=== PATIENT | female | born 1990 | race Caucasian/White ===

== ENCOUNTER → 2017-08-26 19:11 | Outpatient (CLI) | payer OTHER, SELFPAY ==
[2017-08-26 21:57] LABS: Chlamydia Trachomatis by PCR Negative (Negative); Neisserai gonorrhoeae by PCR Negative (Negative); Probe Check PASS; Sample Adequacy Control PASS; Specimen Processing Control PASS
[2017-08-28 14:45] LABS: HPV Reflexed? NOT INDICATED
== END ==
PROVIDERS: Family Provider Obstetrics & Gynecology; PCP Obstetrics & Gynecology; Visit Provider Obstetrics & Gynecology
DX: Z12.4 Encounter for screening for malignant neoplasm of cervix (principal); Z11.3 Encounter for screening for infections with a predominantly sexual mode of transmission
CPT/HCPCS: 87491; 87591; 88175; G0145

== ENCOUNTER → 2017-09-22 15:23 | Outpatient (CLI) | payer OTHER, SELFPAY ==
[2017-09-22 17:35] LABS: Color, Urine Yellow (Yellow); Glucose, Dipstick Normal (Normal); Ketone-Dipstick Negative (Negative); Leukocyte Esterase-Dipstick Negative /ul (Negative); Nitrite-Dipstick Negative (Negative); Occult Blood-Urine Negative /ul (Negative); Protein-Dipstick Negative (Negative); Urine Bilirubin Dipstick Negative (Negative); Urine Clarity Clear (Clear); Urine Urobilinogen Normal (Normal); Urine pH 6.5 (5.0 - 8.0)
[2017-09-22 17:48] LABS: Absolute Lymphocyte Count 2.57 X10^3/ul (0.83-4.51); Absolute Neutrophil Count 5.4 X10^3/uL (2.0-7.7); Basophil# 0.02 X10^3/uL; Basophil% 0.2 % (0-1); Eosinophils% 2.2 % (0-5); Hematocrit 37.4 % (37-47); Hemoglobin 12.5 g/dl (12.0-15.0); Lymphocyte # 2.57 X10^3/ul (4.0); Lymphocyte % 28.8 % (19-41); Mean Corp Hgb Conc 33.4 g/gl (32-36); Mean Corpuscular Hgb 31.6 pg (27.0-32.0); Mean Corpuscular Volume 94.7 fL (81-99); Mean Platelet Vol. 10.4 fl (6.2-12.0); Monocyte# 0.74 X10^3/uL; Monocyte% 8.3 % (0-10); Neutrophil # 5.36 X10^3/uL (2.7-7.7); Neutrophil % 60.1 % (47-70); Platelet Count 295 K/mm3 (150-450); RBC Distribution Width SD 43.5 fl (35.1-43.9); Red Blood Count 3.95 M/mm3 (4.2-5.4); White Blood Count 8.9 K/mm3 (4.4-11.0)
[2017-09-22 17:52] LABS: POSITIVE COUNT NO; POSITIVE DIFFERENTIAL NO; POSITIVE MORPHOLOGY NO
[2017-09-22 17:58] LABS: Thyroid Stim Hormone (TSH) 0.74 uIU/mL (0.358-3.74)
[2017-09-22 17:59] LABS: Amphetamine Urine VISTA NEGATIVE (<1000 ng/mL); Barbiturate Urine VISTA NEGATIVE (< 200 ng/mL); Benzodiazepine Urine VISTA NEGATIVE (< 200 ng/mL); Cocaine Urine VISTA NEGATIVE (< 300 ng/mL); Ecstacy Urine VISTA NEGATIVE (< 500 ng/mL); Methadone Urine VISTA NEGATIVE (< 300 ng/mL); PCP Urine VISTA NEGATIVE (< 25 ng/mL); THC Urine VISTA NEGATIVE (< 50 ng/mL); Vista UDS pH Range 5
[2017-09-22 18:41] LABS: HIV - WCH Non-Reactive (Nonreactive)
[2017-09-24 12:14] LABS: HEPATITIS B SURFACE AG Negative (Negative); Hep C Antibodies <0.1 s/co ratio (0.0-0.9)
[2017-09-26 03:47] LABS: Prenatal RPR NONREACTIVE (NONREACTIVE)
== END ==
PROVIDERS: Visit Provider Obstetrics & Gynecology
DX: Z34.81 Encounter for supervision of other normal pregnancy, first trimester (principal)
CPT/HCPCS: 36415; 80307; 81002; 84443; 85025; 86703; 86762; 86803; 87340

== ENCOUNTER → 2018-01-09 15:12 | Outpatient (CLI) | payer OTHER, SELFPAY ==
[2018-01-09 17:40] LABS: Hematocrit 32.8 % (37-47); Hemoglobin 10.7 g/dl (12.0-15.0); Mean Corp Hgb Conc 32.6 g/gl (32-36); Mean Corpuscular Hgb 31.5 pg (27.0-32.0); Mean Corpuscular Volume 96.5 fL (81-99); Mean Platelet Vol. 10.5 fl (6.2-12.0); Platelet Count 255 K/mm3 (150-450); RBC Distribution Width CV 12.6 % (11.6-14.6); RBC Distribution Width SD 42.5 fl (35.1-43.9); White Blood Count 7.6 K/mm3 (4.4-11.0)
[2018-01-09 17:46] LABS: Glucose Challenge Gest 1H 50g 166 mg/dL (70-140)
[2018-01-09 17:49] LABS: Scan Indicated on CBC? Y/N NO
== END ==
PROVIDERS: Visit Provider Obstetrics & Gynecology
DX: Z34.83 Encounter for supervision of other normal pregnancy, third trimester (principal)
CPT/HCPCS: 36415; 82950; 85027

== ENCOUNTER → 2018-01-22 06:48 | Outpatient (CLI) | payer OTHER, SELFPAY ==
[2018-01-22 07:45] LABS: Glucose GTT-Gestation. Fasting 92 mg/dL (<105)
[2018-01-22 09:12] LABS: Glucose GTT-Gestational 1 Hr 194 mg/dL (<190)
[2018-01-22 10:45] LABS: Glucose GTT-Gestational 2 Hr 165 mg/dL (<165)
[2018-01-22 11:13] LABS: Glucose GTT-Gestational 3 Hr 73 L (<145)
== END ==
PROVIDERS: Family Provider Preventive Medicine Occupational Medicine; PCP Preventive Medicine Occupational Medicine; Referring Provider Obstetrics & Gynecology; Visit Provider Obstetrics & Gynecology
DX: O24.912 Unspecified diabetes mellitus in pregnancy, second trimester (principal); Z3A.00 Weeks of gestation of pregnancy not specified
CPT/HCPCS: 36415; 82951; 82952

== ENCOUNTER → 2018-03-05 21:16 | Outpatient (CLI) | payer OTHER, SELFPAY ==
[2015-05-25 07:26] VITALS: BMI 29.8
--- OUTSIDE RECORDS SUMMARY | 2018-04-30 23:48 | XMS RPT_ITS ---
:1990 Author Organization OHIP Care Team Providers Name Role Phone ADELINA FIERRO Attending Unavailable RUBI PALOMINO Referring Unavailable VERONICA FRIEDMAN Primary Care Unavailable JEFF WHYTE Attending Unavailable RUBI PALOMINO Referring Unavailable VERONICA FRIEDMAN Primary Care Unavailable Rubi Palomino Admitting Unavailable Rubi Palomino Attending Unavailable Rubi Palomino Referring Unavailable Veronica Friedman Primary Care Unavailable Rubi Palomino Attending Unavailable Candelario, Rubi Primary Care Unavailable Rubi Palomino Attending Unavailable Rubi Palomino Attending Unavailable Rubi Palomino Attending Unavailable Rubi Palomino Referring Unavailable Veronica Friedman Primary Care Unavailable Emperatriz Amezcua Attending Unavailable Veronica Friedman Primary Care Unavailable Emperatriz Amezcua Referring Unavailable PROBLEMS PROBLEMS DATE TYPE CONDITION / CODE ATTENDING STATUS SOURCE 03/06/2018 Unknown Z36.85 - Encounter CarlaFishOtilio, Active [place] for Summer Community screening for Hospital Streptococcus B / Repository Z36.85(ICD-10) 01/09/2018 Unknown Z34.83 - Encounter Rubi Palomino Active [place] for supervision of Community other normal Hospital , third Repository trimester / Z34.83(ICD-10) 09/22/2017 Unknown Z34.81 - Encounter Rubi Palomino Active [place] for supervision of Community other normal Hospital , first Repository trimester / Z34.81(ICD-10) 08/27/2017 Unknown Z12.4 - Encounter Rubi Palomino Active [place] for screening for Community malignant neoplasm Hospital of cervix / Repository Z12.4(ICD-10) 08/27/2017 Unknown Z11.3 - Encounter Rubi Palomino Active [place] for screening for Community infections with a Hospital predominantly Repository sexual mode of transmission / Z11.3(ICD-10) PROCEDURES PROCEDURES No Procedure Records FoundRESULTS RESULTS DISCHARGE INSTRUCTION Observed: 03/20/2018 Status: F Source: [place] 12:54 PM [facility] HOSPITAL REPOSITORY [facility] Medical Records Department [address] [place] [address] Instructions for Home/Discharge Instructions 03/20/18 1252 MR#: [id number] Acct: [id number] Name: HERNANDEZ VASQUEZ Rep #: [id number] : 1990 27 From: Rubi Palomino MD PCP: Veronica Friedman DO Status: ADM IN Discharge Diet: No Restrictions Discharge Activity: May Shower, May Take a Tub Bath May resume sexual activity in: 4-6 weeks Additional Activity Instructions:: Nothing in the vagina for 4-6 weeks. You may return to work/school in 6 weeks. Additional Instructions: If you experience any of the following, contact your healthcare provider. * Bleeding that soaks a pad every hour for 2 hours * Fever 100.4 or higher * Unrelieved abdominal pain * Problems urinating (including inability to urinate or burning while urinating). * Visual changes * Severe headache * Flu-like symptoms * Pain or redness in one of both of your breasts * Pain, warmth, tenderness or swelling in your legs, especially the calf area * Frequent nausea and vomiting * Symptoms of depression or anxiety If you experience any of the following, call 911 or go to the nearest Emergency Room. * Chest pain * Problems breathing * Seizure activity * Partial or complete paralysis of a body part, slurred speech, weakness or drooping of the face, or a sudden inability to walk or hold your balance Allergies/Adverse Reactions: Allergies divalproex sodium [From Depakote] Allergy (Verified 05/25/15 07:23) Hives Medications to take at Discharge Vits [Prenatabs FA ] 1 tab PO DAILY 05/25/15 Please Follow Up With: Rubi Palomino MD - [phone] When: Call to make an appointment with your doctor in 6 weeks. Primary Care Physician: Veronica Friedman DO [Primary Care Provider] - Test Results: Test results from this visit will be discussed in further detail at your follow-up appointment, if applicable. Proposed Discharge Date: 03/22/18 03/20/18 1254 <Electronically signed by Rubi Palomino MD> Date Rubi Palomino MD CC: Veronica Friedman DO OPERATIVE REPORT Observed: 03/20/2018 Status: F Source: [place] 12:52 PM [facility] Medical Records Department [address] [place] [address] Operative Report 03/20/18 1245 MR#: [id number] Acct: [id number] Name: HERNANDEZ VASQUEZ Rep #: [id number] : 1990 27 From: Rubi Palomino MD PCP: Veronica Friedman DO Status: ADM IN Location: [id number] Vaginal Delivery Maternal Presentation: Elective Induction 39 wk elective induction (insurance reasons) Method of Induction: Pitocin, Amniotomy Amniotic Membrane Rupture Type: Artificial Amniotic Fluid Description: Clear Final JAMES: 03/27/18 Gestational age: 39 Weeks and 0 Days Date of Procedure: 03/20/18 Pre-Operative Diagnosis: 39 wk induction ; pyelectasis Post-Operative Diagnosis: same Surgery/ Procedure Performed: Spontaneous Vaginal Delivery Type of Anesthesia: Epidural Description of Procedure: Rapid progress from time of ROM at 3-4 cm to complete. Epidural placed just after AROM. Single push resulted in delivery. of a locke viable male over intact perineum Head delivered MANAN. Shoulders delivered rapidly after VTX. OP and Nares bulb suctioned on abdomen. with good tone and vigorous cry to maternal abdomen. Delayed cord clamp employed. Cord clamped x two and cut. Placenta delivered by spont expulsion, expression.3V normal appearing, intact with trailing membranes PP exam; 1st deg posterior vaginal laceration. Hemostatic and no repair required. . no other lacerations. Ray Mike counts correct x two and pt tolerated delivery well. to recovery, stable condition. Presentation: Vertex, MANAN Placental Delivery Description: Spontaneous, Expressed Placenta Disposition: [facility] Cord Vessel Description: 3 Vessels Cord Entanglement: None Drain: Schwartz to straight drain Estimated Blood Loss: 350 A gender: Male (1 minute): 8 (5 minute): 9 Episiotomy Description: None Laceration: Midline, Vaginal Extension/lac - no repair, hemostatic., 1st degree Medications given after delivery: IV Pitocin Complications: None 03/20/18 1252 <Electronically signed by Rubi Palomino MD> Date Rubi Palomino MD CC: Rubi Palomino MD; Vernoica Friedman DO Signed CBC-COMPLETE BLOOD CNT Collected: 03/20/2018 Status: F Source: [place] NO DIFF 7:25 AM [facility] TYPE CODE TESTS RESULT OUT OF RANGE REFERENCE UNITS LAB L100.1000 4.4-11.0 K/mm3 Normal WBC 8.4 LAB L100.1200 4.2-5.4 M/mm3 Low RBC 4.08 LAB L100.1300 12.0-15.0 g/dl Low HGB 11.9 LAB L100.1400 37-47 % Low HCT 36.9 LAB L100.1500 81-99 fL Normal MCV 90.4 LAB L100.1600 27.0-32.0 pg Normal MCH 29.2 LAB L100.1700 32-36 g/gl Normal MCHC 32.2 LAB L100.1810 11.6-14.6 % Normal RDW CV 13.6 LAB L100.1820 35.1-43.9 fl High RDW SD 44.6 LAB L100.1900 150-450 K/mm3 Normal PLT 245 LAB L100.2000 6.2-12.0 fl Normal MPV 10.0 Performed By: #### L100.0500 #### [facility] Laboratory [address] [place], [address] TYPE AND SCREEN Collected: 03/20/2018 Status: F Source: [place] 7:25 AM [facility] RE[facility] Order Comment: Reason for Type AND Screen/Red Cells: ROUTINE TYPE CODE TESTS RESULT OUT OF RANGE REFERENCE UNITS LAB B10.0800 A Normal BLOOD TYPE GEL POSITIVE LAB B100.4000 Normal Antibody NEGATIVE Screen Performed By: #### B101.7450 #### [facility] [address] [facility] [place], [address] Observed: 03/05/2018 Status: F Source: [place] CULTURE, GROUP B 4:30 PM [facility] STREPTOCOCCUS REPOSITORY JOSE Culture Group B Beta Streptococcus is not isolated. Performed By: #### M100.1800 #### [facility] Laboratory [address] [facility] [place], [address] PROGRESS NOTE Observed: 02/04/2018 Status: COMPLETED Source: [place] 7:45 AM [facility] REPOSITORY Met with patient (goes by ) and her Elizabeth Here for unilateral renal dilation Medical, surgical and family hx reviewed Psycho/Social risk: Support System: and extended famiy Financial Stressors: denies Family Dynamics: lives with and 3 children Behavioral Health Issues: denies any current issues Work History: homemaker Information on [facility] services given. Consent to share information with FTC team, OB and rat trapper signed. Pt plans to deliver at [place] with [place] [facility]. Tablet Making Machine Operator is Dr Veronica Friedman. Family medicine [address], [place] [address] [phone] Male fetus- name is yet to be decided Method of feeding: breast Ultrasound findings today: See report in procedures for details. Pt will follow up monthly for reevaluation of renals Reinforced continued OB care with Dr. Palomino The total patient time of the visit was 10 minutes, of which greater than 50% of the time was spent counseling and coordinating care. PROGRESS NOTE Observed: 02/04/2018 Status: COMPLETED Source: [place] 7:45 AM [facility] REPOSITORY The total patient time of the visit was 45 minutes, of which greater than 50% of the time was spent counseling and coordinating care. GESTATIONAL GTT 3HR Collected: 01/22/2018 Status: F Source: [place] 100G 7:10 AM [facility] Order Comment: Is Patient Fasting? Y TYPE CODE TESTS RESULT OUT OF RANGE REFERENCE UNITS LAB L501.0650 <105 mg/dL Normal GLU 92 GTT-FASTING Result Comment: GLUCOSE TOLERANCE TEST FOR Reference Interval GESTATIONAL DIABETES Fasting <105 mg/dL 1 hour <190 mg/dl 2 hour <165 mg/dl 3 hour <145 mg/dl LAB L501.0660 <190 mg/dL High GLU GTT- 1HR 194 LAB L501.0670 <165 mg/dL Normal GLU GTT- 2HR 165 LAB L501.0680 <145 L Normal GLU GTT- 3HR 73 Performed By: #### L500.4710 #### [facility] [address] [facility] [place], [place], [id number] GLUCOSE CHALLENGE GEST Collected: 01/09/2018 Status: F Source: [place] 1H 50G 3:17 PM [facility] TYPE CODE TESTS RESULT OUT OF RANGE REFERENCE UNITS LAB L501.0250 70-140 mg/dL High GLU GEST 166 50g 1H Performed By: #### L501.0250 #### [facility] [address] [place], [address] CBC-COMPLETE BLOOD CNT Collected: 01/09/2018 Status: F Source: [place] NO DIFF 3:17 PM [facility] TYPE CODE TESTS RESULT OUT OF RANGE REFERENCE UNITS LAB L100.1000 4.4-11.0 K/mm3 Normal WBC 7.6 LAB L100.1200 4.2-5.4 M/mm3 Low RBC 3.40 LAB L100.1300 12.0-15.0 g/dl Low HGB 10.7 LAB L100.1400 37-47 % Low HCT 32.8 LAB L100.1500 81-99 fL Normal MCV 96.5 LAB L100.1600 27.0-32.0 pg Normal MCH 31.5 LAB L100.1700 32-36 g/gl Normal MCHC 32.6 LAB L100.1810 11.6-14.6 % Normal RDW CV 12.6 LAB L100.1820 35.1-43.9 fl Normal RDW SD 42.5 LAB L100.1900 150-450 K/mm3 Normal PLT 255 LAB L100.2000 6.2-12.0 fl Normal MPV 10.5 Performed By: #### L100.0500 #### [facility] [address] [place], [address] URINE DRUG SCREEN Collected: 09/22/2017 Status: F Source: [place] (VISTA) 3:26 PM [facility] RE[facility] Order Comment: List of Drugs Taken or Suspected? UNK TYPE CODE TESTS RESULT OUT OF RANGE REFERENCE UNITS LAB L505.0075 TO BE Normal CONFIRMED Result Comment: CONFIRMATORY TESTING FOR ALL POSITIVE URINE DRUG SCREEN RESULTS WILL ONLY BE SENT OUT UPON PHYSICIAN ORDER. VISTA Urine Drug Screen methods provide only preliminary analytical test results. A more specific alternate chemical method must be used in order to obtain a confirmed analytical result. Gas chromatography/mass spectrometery (GC/MS) is the preferred confirmatory method. Clinical consideration and professional judgement should be applied to any drug of abuse test result, particularly when preliminary positive results are used. URINE TCA TESTING MUST BE ORDERED SEPARATELY. USE TEST MNEMONIC: [facility] LAB L505.5005 VISTA UDS PH 5 Normal LAB L505.5015 <1000 ng/mL AMPHETAMINES Normal NEGATIVE LAB L505.5025 < 200 ng/mL BARBITIURATES Normal NEGATIVE LAB L505.5035 < 200 ng/mL BENZODIAZIPINE Normal NEGATIVE LAB L505.5045 < 300 ng/mL COCAINE Normal NEGATIVE LAB L505.5055 < 500 ng/mL ECSTACY Normal NEGATIVE LAB L505.5065 < 300 ng/mL METHADONE Normal NEGATIVE LAB L505.5075 < 300 ng/mL OPIATES Normal NEGATIVE LAB L505.5085 < 25 ng/mL PCP Normal NEGATIVE LAB L505.5095 < 50 ng/mL THC Normal NEGATIVE Performed By: #### L505.5000 #### [facility] [address] [place], [address] URINALYSIS, ROUTINE Collected: 09/22/2017 Status: F Source: [place] (DIPSTICK) 3:26 PM [facility] Order Comment: How was Urine Obtained? Urine, Random TYPE CODE TESTS RESULT OUT OF RANGE REFERENCE UNITS LAB L400.3000 Yellow COLOR Normal Yellow LAB L400.3050 Clear Normal CLARITY Clear LAB L400.3200 Normal mg/dl Normal GLUCOSE, UR Normal LAB L400.3300 Negative mg/dL Normal BILIRUBIN URINE Negative LAB L400.3400 Negative mg/dl Normal KETONE UR Negative LAB L400.3465 1.002-1.030 Normal SP.GR. DIPSTX 1.020 LAB L400.3550 5.0 - 8.0 pH UR Normal 6.5 LAB L400.3600 Negative mg/dl PROT Normal DIPSTX Negative LAB L400.3700 Normal mg/dl Normal UROBILI Normal LAB L400.3750 Negative Normal NITRITE UR Negative LAB L400.3780 Negative /ul Normal OCCULT BLOOD-UR Negative LAB L400.3800 Negative /ul LEUK Normal ESTERASE Negative Performed By: #### L400.2011 #### [facility] [address] [facility] [place], [address] CBC W/DIFF, AUTOMATED Collected: 09/22/2017 Status: F Source: [place] 3:26 PM [facility] TYPE CODE TESTS RESULT OUT OF RANGE REFERENCE UNITS LAB L100.1000 4.4-11.0 K/mm3 Normal WBC 8.9 LAB L100.1200 4.2-5.4 M/mm3 Low RBC 3.95 LAB L100.1300 12.0-15.0 g/dl Normal HGB 12.5 LAB L100.1400 37-47 % Normal HCT 37.4 LAB L100.1500 81-99 fL Normal MCV 94.7 LAB L100.1600 27.0-32.0 pg Normal MCH 31.6 LAB L100.1700 32-36 g/gl Normal MCHC 33.4 LAB L100.1810 11.6-14.6 % Normal RDW CV 13.0 LAB L100.1820 35.1-43.9 fl Normal RDW SD 43.5 LAB L100.1900 150-450 K/mm3 Normal PLT 295 LAB L100.2000 6.2-12.0 fl Normal MPV 10.4 LAB L100.2100 47-70 % Normal NEUT% 60.1 LAB L100.2200 19-41 % Normal LY% 28.8 LAB L100.2300 0-10 % Normal MONO% 8.3 LAB L100.2400 0-5 % Normal EO% 2.2 LAB L100.2500 0-1 % Normal BASO% 0.2 LAB L100.2550 0.0-0.9 % Normal IM GRAN % 0.400 Result Comment: IG% - Immature Granulocytes (promyelocytes, myelocytes and metamyelocytes) > 1% indicates that a LEFT SHIFT is Present. LAB L100.2620 2.0-7.7 X10 3/uL Normal Absolute Neut 5.4 LAB L100.2720 0.83-4.51 X10 3/ul Normal Absolute Lymph 2.57 Performed By: #### L100.0100 #### [facility] [address] [place], [place], [address] THYROID STIM HORMONE Collected: 09/22/2017 Status: F Source: [place] (TSH) 3:26 PM [facility] TYPE CODE TESTS RESULT OUT OF RANGE REFERENCE UNITS LAB L501.9520 0.358-3.74 uIU/mL Normal TSH 0.74 Performed By: #### L501.9520 #### [facility] [address] [place], [place], [address] T AND S-NO Collected: 09/22/2017 Status: F Source: [place] CHARGE W/PNP 3:26 PM [facility] Order Comment: Reason for Type AND Screen/Red Cells: Surgery? N TYPE CODE TESTS RESULT OUT OF RANGE REFERENCE UNITS LAB B10.0800 A Normal BLOOD POSITIVE TYPE GEL LAB B100.4050 Normal Ab SCREEN NEGATIVE GEL Performed By: #### B100.7550 #### [facility] [address] [place], [place], [address] RUBELLA IGG Collected: 09/22/2017 Status: F Source: [place] 3:26 PM [facility] TYPE CODE TESTS RESULT OUT OF RANGE REFERENCE UNITS LAB L509.4000 IU/mL Normal Rubella IgG 28.0 Result Comment: Antibody results Interpretation of Immune Status < 5 IU/ml Presumed Non-immune 5 - < 10 IU/ml Equivocal > or = 10 IU/ml Presumed Immune Performed By: #### L509.4000, L3890.6005 #### [facility] [address] [place], [place], [address] HIV - [facility] Collected: 09/22/2017 Status: F Source: [place] 3:26 PM [facility] TYPE CODE TESTS RESULT OUT OF RANGE REFERENCE UNITS LAB L3890.6005 Nonreactive Normal HIV - [facility] Non-Reactive Performed By: #### L509.4000, L3890.6005 #### [facility] [address] [place], [place], [address] HEPATITIS B SURFACE Collected: 09/22/2017 Status: F Source: [place] AG 3:26 PM [facility] TYPE CODE TESTS RESULT OUT OF RANGE REFERENCE UNITS LAB L3100.0400 Negative Normal HB Negative SURF AG Result Comment: Performed at: [facility] [id number] Programming Specialist: Chance Lynn PhD, Phone: [phone] Performed By: #### L3100.0390, L3100.0625 #### [facility] (refer to report for specific site) refer to report for address and phone number HEPATITIS C ANTIBODIES Collected: 09/22/2017 Status: F Source: [place] 3:26 PM [facility] TYPE CODE TESTS RESULT OUT OF RANGE REFERENCE UNITS LAB L3100.0650 0.0-0.9 s/co ratio Normal HEP C AB <0.1 Result Comment: Negative: < 0.8 Indeterminate: 0.8 - 0.9 Positive: > 0.9 The CDC recommends that a positive HCV antibody result be followed up with a HCV Nucleic Acid Amplification test (716387). Performed By: #### L3100.0390, L3100.0625 #### [facility] (refer to report for specific site) refer to report for address and phone number RPR Collected: 09/22/2017 Status: F Source: [place] 3:26 PM [facility] TYPE CODE TESTS RESULT OUT OF REFERENCE UNITS RANGE LAB L700.5100 NONREACTIVE Normal RPR NONREACTIVE Performed By: #### L700.5100 #### [facility] [address] [place], [address] CT/NG W[facility] BY PCR Collected: 08/26/2017 Status: F Source: [place] 4:00 PM [facility] TYPE CODE TESTS RESULT OUT OF RANGE REFERENCE UNITS LAB L8200.2100 Negative Normal Chlam Negative Trac PCR LAB L8200.2200 Negative Normal NG by Negative PCR Performed By: #### L8200.2000 #### [facility] [address] [place], [address] PAP I-G W/RFX HRHPV Collected: 08/26/2017 Status: F Source: [place] 4:00 PM [facility] Order Comment: CYTOLOGY INFORMATION: - CLINICAL INFORMATION: - DATE LMP/MENOPAUSE: LMP 06/05/17 - COLLECTION VIAL: Thin Prep Vial - SPORTS MEDICINE SPECIALIST SOURCE: CERVICAL/ENDOCERVICAL - COLLECTION TECHNIQUE: BRUSH ONLY Specimen Comment: [id number] Specimen Comment: No. of containers..01 ThinPrep Vial TYPE CODE TESTS RESULT OUT OF RANGE REFERENCE UNITS LAB L7400.0800 . Normal DIAGN Comment Result Comment: NEGATIVE FOR INTRAEPITHELIAL LESION AND MALIGNANCY. LAB L7400.0900 . Normal ADEQ Comment Result Comment: Satisfactory for evaluation. Endocervical and/or squamous metaplastic cells (endocervical component) are present. LAB L7400.1400 . Normal PERFORM Comment Result Comment: Emilia Miller, Cloth Classer (ASCP) LAB L7400.2575 . Normal TEST METHOD Comment Result Comment: This liquid based ThinPrep(R) pap test was screened with the use of an image guided system. LAB L7400.2600 . Normal . COMM LAB L7400.2700 . Normal PAPSMR Comment Result Comment: The Pap smear is a screening test designed to aid in the detection of premalignant and malignant conditions of the uterine cervix. It is not a diagnostic procedure and should not be used as the sole means of detecting cervical cancer. Both false-positive and false-negative reports do occur. LAB L7400.2800 . Normal HPV RFLX Comment Result Comment: The HPV DNA reflex criteria were not met with this specimen result therefore, no HPV testing was performed. Performed at: [facility] [id number] Programming Specialist: Sheyla Taylor MD, Phone: [phone] Performed By: #### L7400.0350 #### [facility] (refer to report for specific site) refer to report for address and phone number ALLERGIES ALLERGIES DATE TYPE / CODE NAME / CODE REACTION SEVERITY SOURCE 02/04/2018 DRUG/[id number] DIVALPROEX SODIUM Med [facility] Repository 05/25/2015 Drug divalproex Hives Unknown [place] Allergy/416 sodium/[id number] [facility] [id number]([facility] ([facility]) Repository ENCOUNTERS ENCOUNTERS ADMIT/DISCHARGE ACCOUNT ADMITTING ENCOUNTER LOCATION SOURCE NUMBER CLASS 03/20/2018/03/21/20 [id number] [place], Inpatient [address] ing:WPRoom: Repository BU722Qge: 1 03/05/2018 [id number] General acute hospital ing:[facility] Repository 03/05/2018/03/05/20 [id number] Ambulatory Building:[address] Repository 02/04/2018/02/05/20 [id number] Ambulatory Building:[address] Repository 01/22/2018 [id number] General acute hospital ing:LAB Repository 01/09/2018 [id number] General acute hospital ing:[place] Repository 09/22/2017 [id number] General acute hospital ing:[place] Repository 08/26/2017 [id number] General acute hospital ing:[facility] Repository PAYERS PAYERS ENCOUNTER GUARANTOR PAYER SUBSCRIBER SOURCE 03/20/2018 HERNANDEZ Alcazar Primary Insurance:MED ELIZABETH R [place] [id number] [facility] PACESARHDOB: [facility] [place] Number: [id number] Hospital [address]Wbz: 330 [id number] Repository [phone] (HP) Date:3914-01-94[address] [address], [place] [address]DK: CHECK WEBSITE 03/20/2018 Secondary NOT GIVENUNK [place] Insurance:SELF PAY [facility] Number: Effective Repository Date:2018-03-16 03/05/2018 [facility] B Primary Insurance:MED ELIZABETH R [place] [id number] [facility] PAUSCHD[facility] [place] Number: [id number] Hospital [address]Qpx: 330 [id number] Repository [phone] (HP) Date:3949-16-01JH [address] [address]F, [place] [address]DM: CHECK WEBSITE 03/05/2018 Secondary NOT GIVENUNK [place] Insurance:SELF PAY [facility] Number: Effective Repository Date:2018-03-05 03/05/2018 [facility] Primary ELIZABETH R [facility] PAUSCHDOB: Insurance:MEDICAL PAUSCHDOB: [facility] [id number] Repository [facility], Number: Madhavi [facility] [address]Hyt: [id number] [place], [place] Date: [phone] (HP) 02/04/2018 [facility] Primary ELIZABETH R [facility] PAUSCHDOB: Insurance:MEDICAL PAUSCHDOB: [facility] [id number] Repository [facility], Number: Madhavi [facility] [id number]: [id number] [facility] [place] Date: [phone] (HP) 01/22/2018 HERNANDEZ B Primary Insurance:MED ELIZABETH R [place] [id number] [facility] PAUSCHD[facility]: [facility] [place] Number: [id number] [facility] [address]Pow: 330 [id number] Repository [phone] (HP) Date:5535-71-04FR [address] [address]JNWGT[place], [place] [address]IG: CHECK WEBSITE 01/22/2018 Secondary NOT GIVENUNK [place] Insurance:SELF PAY [facility] Number: Effective Repository Date:2018-01-13 01/09/2018 [facility] [id number] Primary Insurance:MED Elizabeth PauschDOB: [place] [address] [id number] Number: [facility] [address]Dnk: ([phone] [id number] Repository [phone] () Date:0823-41-22OZ [address] [address]LUV[place], [place] [address]YB: CHECK WEBSITE 01/09/2018 Secondary NOT GIVENUNK [place] Insurance:SELF PAY [facility] Number: Effective Repository Date:2018-01-09 09/22/2017 [facility] [id number] Primary Insurance:MED Elizabeth PauschDOB: [place] [facility] [id number] Number: [facility] [address]Esk: 330 [id number] Repository [phone] () Date:6902-32-09[address]XCUTLSRGK, [place] [address]AC: CHECK WEBSITE 09/22/2017 Secondary NOT GIVENUNK Cara Insurance:SELF PAY [facility] Number: Effective Repository Date:2017-09-22 08/26/2017 [facility] [id number] Primary Insurance:MED Elizabeth PauschDOB: [place] [facility] 6410-46-30[place], [place] Number: Hospital [address]Jbd: 330 [id number] Repository [phone] () Date:8333-94-12UR [address] [address]ZXCCJPMLO, [place] [address]TW: CHECK WEBSITE 08/26/2017 Secondary NOT GIVENUNK [place] Insurance:SELF PAY [facility] Number: Effective Repository Date:2017-08-26
== END ==
PROVIDERS: Family Provider Preventive Medicine Occupational Medicine; PCP Preventive Medicine Occupational Medicine; Referring Provider Obstetrics & Gynecology; Visit Provider Obstetrics & Gynecology
DX: Z36.85 Encounter for antenatal screening for Streptococcus B (principal)
CPT/HCPCS: 87081

== ENCOUNTER 2018-03-20 07:00 | Inpatient (IN) | payer OTHER, SELFPAY ==
[2015-05-25 07:26] VITALS: BMI 29.8
[2018-03-20] MEDS: Lactated Ringers 1,000 ML 50 ML IV ×2 (07:25→10:44)
[2018-03-20 07:40] VITALS: BMI 30.6
[2018-03-20 07:43] LABS: Hematocrit 36.9 % (37-47); Hemoglobin 11.9 g/dl (12.0-15.0); Mean Corp Hgb Conc 32.2 g/gl (32-36); Mean Corpuscular Hgb 29.2 pg (27.0-32.0); Mean Corpuscular Volume 90.4 fL (81-99); Platelet Count 245 K/mm3 (150-450); RBC Distribution Width CV 13.6 % (11.6-14.6); RBC Distribution Width SD 44.6 fl (35.1-43.9); Red Blood Count 4.08 M/mm3 (4.2-5.4); White Blood Count 8.4 K/mm3 (4.4-11.0)
[2018-03-20 07:44] LABS: Scan Indicated on CBC? Y/N NO
[2018-03-20] MEDS: Oxytocin 30 units/NS 500 ml 30 UNITS/500 ML IV.SOLN IV (07:55)
--- NOTE | 2018-03-20 08:40 | PCM.PN.BLA ---
Progress Note Induction of labor 39 wk EGA Planning epidural. Denies UCs at this point. AVSS Plts ok for epidural. EFM 120-130s avg variability. Accels noted. Variables noted with some UCs. Overall category I tracing. Rare UCs CX: 3+/ soft/75/slightly posterior, guarding with exam. AROM but little to no fluid. Will observe for now. A/P: Induction of labor. Plans epidural. continue Pitocin may place IUPC prn. Scalp lead prn.
[2018-03-20] MEDS: fentaNYL-bupivacaine (epidural) 100 ML BAG EPIDURAL (10:20)
[2018-03-20] MEDS: Oxytocin 30 units/NS 500 ml 30 UNITS/500 ML IV.SOLN 334 UNITS IV (11:57)
[2018-03-20] MEDS: Oxytocin 30 units/NS 500 ml 30 UNITS/500 ML IV.SOLN 167 UNITS IV (12:30)
--- NOTE | 2018-03-20 12:45 | PCM.OB.VAG ---
Vaginal Delivery Maternal Presentation: Elective Induction 39 wk elective induction (insurance reasons) Method of Induction: Pitocin, Amniotomy Amniotic Membrane Rupture Type: Artificial Amniotic Fluid Description: Clear Final JAMES: 03/27/18 Gestational age: 39 Weeks and 0 Days Date of Procedure: 03/20/18 Pre-Operative Diagnosis: 39 wk induction ; pyelectasis Post-Operative Diagnosis: same Surgery/ Procedure Performed: Spontaneous Vaginal Delivery Type of Anesthesia: Epidural Description of Procedure: Rapid progress from time of ROM at 3-4 cm to complete. Epidural placed just after AROM. Single push resulted in delivery. of a locke viable male over intact perineum Head delivered MANAN. Shoulders delivered rapidly after VTX. OP and Nares bulb suctioned on abdomen. with good tone and vigorous cry to maternal abdomen. Delayed cord clamp employed. Cord clamped x two and cut. Placenta delivered by spont expulsion, expression.3V normal appearing, intact with trailing membranes PP exam; 1st deg posterior vaginal laceration. Hemostatic and no repair required. . no other lacerations. Ray Mike counts correct x two and pt tolerated delivery well. to recovery, stable condition. Presentation: Vertex, MANAN Placental Delivery Description: Spontaneous, Expressed Placenta Disposition: [facility] Cord Vessel Description: 3 Vessels Cord Entanglement: None Drain: Schwartz to straight drain Estimated Blood Loss: 350 Infant A gender: Male (1 minute): 8 (5 minute): 9 Episiotomy Description: None Laceration: Midline, Vaginal Extension/lac - no repair, hemostatic., 1st degree Medications given after delivery: IV Pitocin Complications: None
--- NOTE | 2018-03-20 12:52 | PCM.DCVAG ---
Discharge Diet: No Restrictions Discharge Activity: May Shower, May Take a Tub Bath May resume sexual activity in: 4-6 weeks Additional Activity Instructions:: Nothing in the vagina for 4-6 weeks. You may return to work/school in 6 weeks. Additional Instructions: If you experience any of the following, contact your healthcare provider. Bleeding that soaks a pad every hour for 2 hours Fever 100.4 or higher Unrelieved abdominal pain Problems urinating (including inability to urinate or burning while urinating). Visual changes Severe headache Flu-like symptoms Pain or redness in one of both of your breasts Pain, warmth, tenderness or swelling in your legs, especially the calf area Frequent nausea and vomiting Symptoms of depression or anxiety If you experience any of the following, call 911 or go to the nearest Emergency Room. Chest pain Problems breathing Seizure activity Partial or complete paralysis of a body part, slurred speech, weakness or drooping of the face, or a sudden inability to walk or hold your balance Allergies/Adverse Reactions: Allergies divalproex sodium [From Depakote] Allergy (Verified 05/25/15 07:23) Hives Medications to take at Discharge Vits [Prenatabs FA ] 1 tab PO DAILY 05/25/15 Please Follow Up With: Rubi Palomino MD - [phone] When: Call to make an appointment with your doctor in 6 weeks. Primary Care Physician: Gibran Friedman DO [Primary Care Provider] - Test Results: Test results from this visit will be discussed in further detail at your follow-up appointment, if applicable. Proposed Discharge Date: 03/22/18
--- NOTE | 2018-03-20 12:54 | DCINST_ITS ---
Discharge Diet: No Restrictions Discharge Activity: May Shower, May Take a Tub Bath May resume sexual activity in: 4-6 weeks Additional Activity Instructions:: Nothing in the vagina for 4-6 weeks. You may return to work/school in 6 weeks. Additional Instructions: If you experience any of the following, contact your healthcare provider. * Bleeding that soaks a pad every hour for 2 hours * Fever 100.4 or higher * Unrelieved abdominal pain * Problems urinating (including inability to urinate or burning while urinating). * Visual changes * Severe headache * Flu-like symptoms * Pain or redness in one of both of your breasts * Pain, warmth, tenderness or swelling in your legs, especially the calf area * Frequent nausea and vomiting * Symptoms of depression or anxiety If you experience any of the following, call 911 or go to the nearest Emergency Room. * Chest pain * Problems breathing * Seizure activity * Partial or complete paralysis of a body part, slurred speech, weakness or drooping of the face, or a sudden inability to walk or hold your balance Allergies/Adverse Reactions: Allergies divalproex sodium [From Depakote] Allergy (Verified 05/25/15 07:23) Hives Medications to take at Discharge Vits [Prenatabs FA ] 1 tab PO DAILY 05/25/15 Please Follow Up With: Rubi Palomino MD - [phone] When: Call to make an appointment with your doctor in 6 weeks. Primary Care Physician: Gibran Friedman DO [Primary Care Provider] - Test Results: Test results from this visit will be discussed in further detail at your follow- up appointment, if applicable. Proposed Discharge Date: 03/22/18
[2018-03-20] MEDS: 0.9% Saline Lock 10 ML Syringe IV (13:49)
[2018-03-20 15:21] VITALS: BP 132/66; PULSE 95; RESP 16; TEMP 36.9; O2SAT 96
[2018-03-20] MEDS: Ibuprofen 600 MG Tablet PO (16:51)
[2018-03-20] MEDS: Acetaminophen 500 MG Tablet 1000 MG PO (19:59)
[2018-03-20 22:00] VITALS: BP 136/76; PULSE 80; RESP 17; TEMP 36.6
[2018-03-21] VITALS: PULSE 85; RESP 18
[2018-03-21] MEDS: Ibuprofen 600 MG Tablet PO ×2 (03:12→13:36)
[2018-03-21 04:00] VITALS: BP 121/64; PULSE 84; RESP 17; TEMP 36.8
[2018-03-21] MEDS: Senna/Docusate Sodium 1 Tablet PO (07:55)
[2018-03-21 08:00] VITALS: BP 126/74; PULSE 82; RESP 16; TEMP 36.6; O2SAT 95
--- NOTE | 2018-03-21 08:15 | PCM.PN.OB ---
Subjective: No complaints today. Breast feeding. Bleeding light. Objective: AFeb VSS - Physical Exam General: Alert, Oriented x3, Cooperative, No apparent distress Lungs: Clear to auscultation, Normal air movement Cardiovascular: Regular rate, Regular Rhythm Abdomen: Soft, Non Tender, Non-Distended, - - Fundus firm nontender Extremities: No edema Skin: No rashes Neurological: Neuro grossly intact Psych/Mental Status: Normal Affect Comment: lochia light Vital Signs Temp Pulse Resp BP Pulse Ox 98.2 F 84 17 121/64 H 96 03/21/18 04:00 03/21/18 04:00 03/21/18 04:00 03/21/18 04:00 03/20/18 15:21 Oxygen Delivery Method Room Air Weight: 162 lb 0.636 oz Body Mass Index (BMI) 30.6 Intake and Output for Last 24 Hours 03/19/18 03/20/18 03/21/18 23:59 23:59 23:59 Intake Total 1930 / 1930 Output Total 1949 / 1949 Balance - / -19 Laboratory Tests Past 24 Hrs 03/20/18 07:25 Blood Type A POSITIVE Antibody Screen NEGATIVE Medical Necessity - Tobacco Use Smoking Status: Never smoker Assessment/Plan Doing well on PP day#1. Continue routine PP care. May decide for discharge home tonight. Home going instructions and warnings given.
[2018-03-21 14:00] VITALS: BP 117/66; PULSE 95; RESP 16; TEMP 36.9; O2SAT 96
--- NOTE | 2018-03-24 13:48 | NURSING ---
03-24-18 Follow up phone call voicemail was left and encouraged to call if we can assist in anyway. Victoria SEGURA IBCLC
--- OUTSIDE RECORDS SUMMARY | 2018-05-05 18:55 | XMS RPT_ITS ---
[...] TYPE CONDITION / CODE ATTENDING STATUS SOURCE 04/22/2018 Unknown Z34.83 - Encounter Rubi Palomino Active [place] for supervision of Community other normal Hospital , third Repository trimester / Z34.83(ICD-10) 03/06/2018 Unknown Z36.85 - Encounter Aletaon, Active [place] for Summer Community screening for Hospital Streptococcus B / Repository Z36.85(ICD-10) 09/22/2017 Unknown Z34.81 - Encounter Rubi Palomino Active [place] for supervision of Community other normal Hospital , first Repository trimester / Z34.81(ICD-10) 08/27/2017 Unknown Z12.4 - Encounter Rubi Palomino Active [place] for screening for Community malignant neoplasm Hospital of cervix / Repository Z12.4(ICD-10) 08/27/2017 Unknown Z11.3 - Encounter Rubi Palomino Active [place] for screening for Community infections with a Hospital predominantly Repository sexual mode of transmission / Z11.3(ICD-10) PROCEDURES PROCEDURES No Procedure Records FoundRESULTS RESULTS DISCHARGE INSTRUCTION Observed: 03/20/2018 Status: F Source: CARA 12:54 PM [facility] REPOSITORY [facility] Medical Records Department [address] [place] [address] Instructions for Home/Discharge Instructions 03/20/18 1252 MR#: [id number] Acct: [id number] Name: HERNANDEZ VASQUEZ Rep #: [id number] : 1990 27 From: Rubi Palomino MD [...] Follow Up With: Rubi Palomino MD - [phone] When: Call to make an appointment with your doctor in 6 weeks. Primary Care Physician: Veronica Friedman DO [Primary Care Provider] - Test Results: Test results from this visit will be discussed in further detail at your follow-up appointment, if applicable. Proposed Discharge Date: 03/22/18 03/20/18 1254 <Electronically signed by Rubi Palomino MD> Date Rubi Palomino MD CC: Veronica Friemdan DO OPERATIVE REPORT Observed: 03/20/2018 Status: F Source: BERGEN 12:52 PM [facility] REPOSITORY [facility] Medical Records Department [address] [place] [address] Operative Report 03/20/18 1245 MR#: [id number] Acct: [id number] Name: HERNANDEZ VASQUEZ Rep #: [id number] : 1990 27 From: Rubi Palomino MD PCP: Veronica Friedman DO Status: ADM IN Location: [id number] Vaginal Delivery Maternal Presentation: Elective Induction 39 [...] OP and Nares bulb suctioned on abdomen. Infant with good tone and vigorous cry to [...] to straight drain Estimated Blood Loss: 350 Infant A gender: Male (1 minute): 8 (5 minute): 9 Episiotomy Description: None Laceration: Midline, Vaginal Extension/lac - no repair, hemostatic., 1st degree Medications given after delivery: IV Pitocin Complications: None 03/20/18 1252 <Electronically signed by Rubi Palomino MD> Date Rubi Palomino MD CC: Rubi Palomino MD; Veronica Friedman DO Signed CBC-COMPLETE BLOOD CNT Collected: 03/20/2018 Status: F Source: CARA NO DIFF 7:25 AM [facility] REPOSITORY TYPE CODE TESTS RESULT OUT OF [...] MPV 10.0 Performed By: #### L100.0500 #### [facility] [address] [place], [address] TYPE AND SCREEN Collected: 03/20/2018 Status: F Source: BERGEN 7:25 AM [facility] REPOSITORY Order Comment: Reason for Type AND Screen/Red Cells: ROUTINE TYPE CODE TESTS RESULT OUT OF RANGE REFERENCE UNITS LAB B10.0800 A Normal BLOOD TYPE GEL POSITIVE LAB B100.4000 Normal Antibody NEGATIVE Screen Performed By: #### B101.7450 #### [facility] [address] [facility] [place], [address] Observed: 03/05/2018 Status: F Source: BERGEN CULTURE, GROUP B 4:30 PM [facility] STREPTOCOCCUS REPOSITORY JOSE Culture Group B Beta Streptococcus is not isolated. Performed By: #### M100.1800 #### [facility] [address] [facility] [place], [address] PROGRESS NOTE Observed: 02/04/2018 Status: COMPLETED Source: DES 7:45 AM [facility] REPOSITORY Met with patient (goes by ) and her Elizabeth Here for unilateral renal dilation Medical, surgical and family hx reviewed Psycho/Social risk: Support System: and extended famiy Financial Stressors: denies Family Dynamics: lives with and 3 children Behavioral Health Issues: denies any current issues Work History: homemaker Information on [facility] services given. Consent to share information with FTC team, OB and piece dye worker signed. Pt plans to deliver [place] [facility] [place] [facility]. Golf Course Keeper is Dr Veronica Friedman. Family medicine [address], [place] [address] [phone] Male fetus- name is yet to be [...] 02/04/2018 Status: COMPLETED Source: DES 7:45 AM [facility] REPOSITORY The total patient time of the visit was 45 minutes, of which greater than 50% of the time was spent counseling and coordinating care. GESTATIONAL GTT 3HR Collected: 01/22/2018 Status: F Source: CARA 100G 7:10 AM [facility] REPOSITORY Order Comment: Is Patient Fasting? Y [...] 3HR 73 Performed By: #### L500.4710 #### [facility] [address] [facility]. [place], [place], [address] GLUCOSE CHALLENGE GEST Collected: 01/09/2018 Status: F Source: CARA 1H 50G 3:17 PM [facility] REPOSITORY TYPE CODE TESTS RESULT OUT OF RANGE REFERENCE UNITS LAB L501.0250 70-140 mg/dL High GLU GEST 166 50g 1H Performed By: #### L501.0250 #### [facility] [address] [place], [address] CBC-COMPLETE BLOOD CNT Collected: 01/09/2018 Status: F Source: CARA NO DIFF 3:17 PM [facility] REPOSITORY TYPE CODE TESTS RESULT OUT OF [...] MPV 10.5 Performed By: #### L100.0500 #### [facility] [address] [place], [address] URINE DRUG SCREEN Collected: 09/22/2017 Status: F Source: CARA (VISTA) 3:26 PM [facility] REPOSITORY Order Comment: List of Drugs Taken [...] Normal NEGATIVE Performed By: #### L505.5000 #### [facility] [address] [place], [address] URINALYSIS, ROUTINE Collected: 09/22/2017 Status: F Source: CARA (DIPSTICK) 3:26 PM [facility] REPOSITORY Order Comment: How was Urine Obtained? [...] ESTERASE Negative Performed By: #### L400.2011 #### [facility] [address] [facility] [place], [address] CBC W/DIFF, AUTOMATED Collected: 09/22/2017 Status: F Source: CARA 3:26 PM [facility] REPOSITORY TYPE CODE TESTS RESULT OUT OF [...] Lymph 2.57 Performed By: #### L100.0100 #### [facility] [address] [place], [place], [address] THYROID STIM HORMONE Collected: 09/22/2017 Status: F Source: CARA (TSH) 3:26 PM [facility] REPOSITORY TYPE CODE TESTS RESULT OUT OF RANGE REFERENCE UNITS LAB L501.9520 0.358-3.74 uIU/mL Normal TSH 0.74 Performed By: #### L501.9520 #### [facility] [address] [place], [place], [address] T AND S-NO Collected: 09/22/2017 Status: F Source: CARA CHARGE W/PNP 3:26 PM [facility] REPOSITORY Order Comment: Reason for Type AND Screen/Red Cells: Surgery? N TYPE CODE TESTS RESULT OUT OF RANGE REFERENCE UNITS LAB B10.0800 A Normal BLOOD POSITIVE TYPE GEL LAB B100.4050 Normal Ab SCREEN NEGATIVE GEL Performed By: #### B100.7550 #### [facility] [address] [place], [place], [address] RUBELLA IGG Collected: 09/22/2017 Status: F Source: BERGEN 3:26 PM [facility] REPOSITORY TYPE CODE TESTS RESULT OUT OF RANGE REFERENCE UNITS LAB L509.4000 IU/mL Normal Rubella IgG 28.0 Result Comment: Antibody results Interpretation of Immune Status < 5 IU/ml Presumed Non-immune 5 - < 10 IU/ml Equivocal > or = 10 IU/ml Presumed Immune Performed By: #### L509.4000, L3890.6005 #### [facility] [address] [place], [place], [address] HIV - WCH Collected: 09/22/2017 Status: F Source: BERGEN 3:26 PM [facility] REPOSITORY TYPE CODE TESTS RESULT OUT OF RANGE REFERENCE UNITS LAB L3890.6005 Nonreactive Normal HIV - [facility] Non-Reactive Performed By: #### L509.4000, L3890.6005 #### [facility] [address] [place], [place], [address] HEPATITIS B SURFACE Collected: 09/22/2017 Status: F Source: BERGEN AG 3:26 PM [facility] REPOSITORY TYPE CODE TESTS RESULT OUT OF RANGE REFERENCE UNITS LAB L3100.0400 Negative Normal HB Negative SURF AG Result Comment: Performed at: [facility] [id number] Bank Analyst: Chance Lynn PhD, Phone: [phone] Performed By: #### L3100.0390, L3100.0625 #### [facility] (refer to report for specific site) refer to report for address and phone number HEPATITIS C ANTIBODIES Collected: 09/22/2017 Status: F Source: BERGEN 3:26 PM [facility] REPOSITORY TYPE CODE TESTS RESULT OUT OF RANGE REFERENCE UNITS LAB L3100.0650 0.0-0.9 s/co ratio Normal HEP C AB <0.1 Result Comment: Negative: < 0.8 Indeterminate: 0.8 - 0.9 Positive: > 0.9 The CDC recommends that a positive HCV antibody result be followed up with a HCV Nucleic Acid Amplification test (860198). Performed By: #### L3100.0390, L3100.0625 #### [facility] (refer to report for specific site) refer to report for address and phone number RPR Collected: 09/22/2017 Status: F Source: BERGEN 3:26 PM [facility] REPOSITORY TYPE CODE TESTS RESULT OUT OF REFERENCE UNITS RANGE LAB L700.5100 NONREACTIVE Normal RPR NONREACTIVE Performed By: #### L700.5100 #### [facility] [address] [place], [address] CT/NG WCH BY PCR Collected: 08/26/2017 Status: F Source: BERGEN 4:00 PM [facility] REPOSITORY TYPE CODE TESTS RESULT OUT OF RANGE REFERENCE UNITS LAB L8200.2100 Negative Normal Chlam Negative Trac PCR LAB L8200.2200 Negative Normal NG by Negative PCR Performed By: #### L8200.2000 #### [facility] [address] [place], [address] PAP I-G W/RFX HRHPV Collected: 08/26/2017 Status: F Source: BERGEN 4:00 PM [facility] REPOSITORY Order Comment: CYTOLOGY INFORMATION: - CLINICAL INFORMATION: - DATE LMP/MENOPAUSE: LMP 06/05/17 - COLLECTION VIAL: Thin Prep Vial - OPTICAL EFFECTS CAMERA OPERATOR SOURCE: CERVICAL/ENDOCERVICAL - COLLECTION TECHNIQUE: BRUSH ONLY Specimen Comment: [id number] Specimen Comment: No. of containers..01 ThinPrep Vial TYPE CODE TESTS RESULT OUT OF RANGE REFERENCE UNITS LAB L7400.0800 . Normal DIAGN Comment Result Comment: NEGATIVE FOR INTRAEPITHELIAL LESION AND MALIGNANCY. LAB L7400.0900 . Normal ADEQ Comment Result Comment: Satisfactory for evaluation. Endocervical and/or squamous metaplastic cells (endocervical component) are present. LAB L7400.1400 . Normal PERFORM Comment Result Comment: Emilia Miller, Stripping And Booking Machine Operator (ASCP) LAB L7400.2575 . Normal TEST METHOD [...] no HPV testing was performed. Performed at: - [facility] [id number] Bank Analyst: Sheyla Taylor MD, Phone: [phone] Performed By: #### L7400.0350 #### [facility] (refer to report for specific site) refer to report for address and phone number ALLERGIES ALLERGIES DATE TYPE / CODE NAME / CODE REACTION SEVERITY SOURCE 02/04/2018 DRUG/[id number] DIVALPROEX SODIUM Med [facility]) Repository 05/25/2015 Drug divalproex Hives Unknown [place] Allergy/416 sodium/[id number] [facility] 487394([facility] ([facility]) Repository ENCOUNTERS ENCOUNTERS ADMIT/DISCHARGE ACCOUNT ADMITTING ENCOUNTER LOCATION SOURCE NUMBER CLASS 03/20/2018/03/21/20 [id number] [place], Inpatient [address] ing:WPRoom: Repository [id number]: 1 03/05/2018 [id number] [facility] ing:LABSPEC Repository 03/05/2018/03/05/20 [id number] Ambulatory Building:[address] Repository 02/04/2018/02/05/20 [id number] Ambulatory Building:[address] Repository 01/22/2018 [id number] [facility] ing:LAB Repository 01/09/2018 [id number] Ambulatory [facility] ing:WOBLAB Repository 09/22/2017 [id number] [facility] ing:WOBLAB Repository 08/26/2017 [id number] [facility] ing:LABSPEC Repository PAYERS PAYERS ENCOUNTER GUARANTOR PAYER SUBSCRIBER SOURCE 03/20/2018 HERNANDEZ Alcazar Primary NOT GIVENUNK [place] [id number] Insurance:SELF PAY [facility] [address]Klj: (330) Number: Effective Repository [phone] (HP) Date:2018-03-16 03/05/2018 HERNANDEZ Alcazar Primary Insurance:MED ELIZABETH R Cara [id number] [facility] PAUSCHDOB: [place], [place] Number: [id number] Hospital [address]Gem: [phone]) [id number] Repository [phone] (HP) Date:6537-86-71HE [address] [address]IT, [place] [address]RX: CHECK WEBSITE 03/05/2018 Secondary NOT GIVENUNK [place] Insurance:SELF PAY [facility] Number: Effective Repository Date:2018-03-05 03/05/2018 HERNANDEZ Primary [facility] PAUSCHDOB: Insurance:MEDICAL PAUSCHDOB: Hospital [facility] [id number] Repository [facility], Number: Madhavi [facility] [address]Jza: [id number] [place], [place] Date: [phone] (HP) 02/04/2018 HERNANDEZ Primary [facility] PAUSCHDOB: Insurance:MEDICAL PAUSCHDOB: Hospital [facility] [id number] Repository [facility], Number: Madhavi [facility] [address]Qxi: [id number] [place], [place] Date: [address] (HP) 01/22/2018 HERANNDEZ B Primary Insurance:MED ELIZABETH R Cara [id number] [facility] PAUSCHDOB: [place], [place] Number: [id number] Hospital [id number]: 330 [id number] Repository [phone] (HP) Date:5089-10-03OB [address] [address]IHLIKCJTM, [place] [address]QC: CHECK WEBSITE 01/22/2018 Secondary NOT GIVENUNK [place] Insurance:SELF PAY [facility] Number: Effective Repository Date:2018-01-13 01/09/2018 [facility] [id number] Primary Insurance:MED Elizabeth PauschDOB: [place] [employer] TPAPolicy [id number], [place] Number: [facility] [id number]: 330 [id number] Repository [phone] () Date:5840-20-47BI [address] [address]MBYLUWXTF, [place] [address]KD: CHECK WEBSITE 01/09/2018 Secondary NOT GIVENUNK [place] Insurance:SELF PAY [facility] Number: Effective Repository Date:2018-01-09 09/22/2017 [id number] Insurance:MED Elizabeth PauschDOB: [place] TPAPolicy [id number], [place] Number: [facility] [id number]: 330 [id number] Repository [phone] () Date:5675-10-71GE [address] [address], [place] [address]IC: CHECK WEBSITE 09/22/2017 Secondary NOT GIVENUNK [place] Insurance:SELF PAY [facility] Number: Effective Repository Date:2017-09-22 08/26/2017 [facility] [id number] Primary Insurance:MED Elizabeth PauschDOB: [place] TPAPol[employer] [id number], [place] Number: [facility] [id number]: 330 [id number] Repository [phone] () Date:9320-68-92SF [address] [address]HBJHQFFDT, [place] [address]KR: CHECK WEBSITE 08/26/2017 Secondary NOT GIVENUNK [place] Insurance:SELF PAY [facility] Number: Effective Repository Date:2017-08-26
== END 2018-03-21 16:30 | disposition home or self-care (01) | DRG 807 ==
PROVIDERS: Admitting Provider Obstetrics & Gynecology; Family Provider Preventive Medicine Occupational Medicine; PCP Preventive Medicine Occupational Medicine; Referring Provider Obstetrics & Gynecology; Visit Provider Obstetrics & Gynecology
DX: O35.8XX0 Maternal care for other (suspected) fetal abnormality and damage, not applicable or unspecified (principal); Z37.0 Single live birth; Z3A.39 39 weeks gestation of pregnancy
CPT/HCPCS: 59050; 85027; 86850; 86900; 99218; J7120; A4216; G0378